=== PATIENT | male | born 1970 | race Caucasian/White ===

== ENCOUNTER 2017-06-24 14:47 | Inpatient (IN) | payer SELFPAY ==
[~2017-06-24] VITALS: Ht 180.3 cm; Wt 93.0 kg
[2017-06-24] MEDS ORDERED: MAGNESIUM HYDROXIDE 30 ML LIQUID UDC PO PRN (15:30)
[2017-06-24] MEDS ORDERED: MIRALAX 17 GM POWD.PACK PO PRN (15:30)
[2017-06-24] MEDS ORDERED: ACETAMINOPHEN 325 MG TABLET PO PRN (15:30)
[2017-06-24] MEDS ORDERED: LOPERAMIDE HCL 2 MG CAPSULE PO PRN ×2 (15:30)
[2017-06-24] MEDS ORDERED: LORAZEPAM 2 MG/1 ML VIAL IM PRN (15:30)
[2017-06-24] MEDS ORDERED: MAG HYDROX/AL HYDROX/SIMETH 30 ML LIQUID UDC PO PRN (15:30)
[2017-06-24] MEDS ORDERED: LORAZEPAM 1 MG TABLET PO PRN (15:30)
[2017-06-24] MEDS ORDERED: IBUPROFEN 400 MG TABLET PO PRN (15:30)
[2017-06-24] MEDS ORDERED: ONDANSETRON ODT 4 MG TAB.RAPDIS SL PRN (15:30)
[2017-06-24] MEDS ORDERED: ONDANSETRON 4 MG/2 ML VIAL IM PRN (15:30)
[2017-06-24] MEDS ORDERED: diphenhydrAMINE 50 MG CAPSULE PO PRN (15:30)
--- NOTE | 2017-06-24 15:40 | NUR ---
PRE-ASSESSMENT: Pre-Assessment done at intake office, client is A/O x4, he presents with flat affect, anxious mood, agitated, restless, flushed face, and moist skin. Client is wearing clean clothes, he appears nourished. Client avoids eye contact, Left eye noted with rylie, he stated, "I think it's a corneal abrasion, it happened when I removed my eye contacts, two days ago." no drainage noted, client denies blurred or double vision, but he reports [id number] and watery eye. Presured speech, he has difficulty staying still, T 98.4 , RR 18, HR 104, spO2 @ 96% on RA, Pain on L eye 04/16. unable to obtain a blood pressure reading, client moves extremity continuously. He is fully ambulatory. He denies any allergies; he denies any withdrawal-induced seizure. PMH: Anxiety. Past Surgical hx: Left ankle. Client denies any suicidal/homicidal ideation at this time and reports no hx of of SI/HI. Medications taken at home Visine eyedrops Gentamycin drops TID OS Substance history First time used at 25 y/o, Alcohol (vodka) PO 750mL, daily for the past 5 days, last used the day before admission before admission around 1400. Protocol regarding vitals Q4H, UDS, blood work, and controlled substances discuss with client, he verbalized understanding. PCP: "I don't have one at the moment."
[2017-06-24] MEDS ORDERED: NAPHAZOLINE/PHENIR OPHT DROP 15 ML BOTTLE LEFTEYE PRN (15:45)
--- NOTE | 2017-06-24 15:50 | NUR ---
Admissions Note 46 year old male admitted to [facility] for withdrawal from alcohol. Client is oriented to unit, educated about protocols and how to work TV and call light in his room. Weight: 205 pounds. Height: 5'11" CIWA: 20 Client appears anxious, clammy skin, dry scattered scabs on bilateral knee, and linear scab on R shoulder. "I felt two days ago." Bilateral lung clear on auscultation, abdomen soft, non-tender, no edema noted. Client presents symptoms of withdrawal, anxiety, irritability, agitation, flushed face, tremors, nausea, restless legs, sense of panic, and difficulty concentrating. Client has steady gait. Client has NKDA, regular diet, full code ordered. Client denies any history of seizures. LBM was 06/24/07, medium/brown/soft. He declines PNA vaccine, stating, "I don't like the side effects of it" He gives verbal consent for HIV. Client states that he lives with his and two young kids. He reports no prior treatment. His longest period of sobriety is for 4 years, from [id number]. Client stated, the reason why he relapse, "I was stressed, I was very streesed and I fall of the wagon, I am so very sorry." Client has not try to stop drinking because he stated, "I feel anxious, restless, irritable, sense of panic." When asked client how this treatment will be different he stated, "I do not know, this is my first ever admission." Client stated, "I am thinking on going into treatment." Dr Palm assessed client. Urine was collected. All safety measures instituted. [place] precaution. Call light within reach. Will continue to monitor.
[2017-06-24 15:59] LABS: BASOPHILS # (AUTO) 0.1 K/uL (0.0-8.0); BASOPHILS % (AUTO) 0.6 % (0.0-2.0); EOSINOPHILS % (AUTO) 0.1 % (0.0-7.0); HEMOGLOBIN 17.3 g/dL (12.5-16.3); LYMPHOCYTES # (AUTO) 1.4 K/uL (20.0-40.0); LYMPHOCYTES % (AUTO) 13.3 % (20.5-51.5); MEAN CORPUSCULAR HGB CONC 35 g/dL (32.5-36.3); MEAN CORPUSCULAR VOLUME 92.6 fL (73.0-96.2); MONOCYTES # (AUTO) 0.6 K/uL (2.0-10.0); MONOCYTES % (AUTO) 5.6 % (0.0-11.0); NEUTROPHILS # (AUTO) 8.7 K/uL (1.8-8.9); NEUTROPHILS % (AUTO) 80.4 % (38.5-71.5); PLATELET COUNT (AUTO) 263 K/uL (152-348); WHITE BLOOD COUNT (AUTO) 10.9 K/uL (3.6-10.2)
[2017-06-24 16:11] LABS: ALANINE AMINOTRANSFERASE 107 U/L (16-63); ALKALINE PHOSPHATASE 90 U/L (50-136); AMYLASE 36 U/L (25-115); ASPARTATE AMINOTRANSFERASE 104 U/L (15-37); BILIRUBIN,TOTAL 1.8 mg/dL (0.2-1.0); CARBON DIOXIDE 30 mmol/L (21-32); CHLORIDE 98 mmol/L (98-107); CREATININE 1.4 mg/dL (0.6-1.3); GLUCOSE 132 mg/dL (74-106); MAGNESIUM 1.3 mg/dL (1.8-2.4); POTASSIUM 3.8 mmol/L (3.5-5.1); TOTAL PROTEIN, SERUM 8.3 g/dL (6.4-8.2); UREA NITROGEN, BLOOD 8 mg/dL (7-18)
[2017-06-24 16:14] LABS: *AMPHETAMINE, URINE NEGATIVE (NEGATIVE); *BARBITURATE, URINE NEGATIVE (NEGATIVE); *CANNABINOID, URINE NEGATIVE (NEGATIVE); *COCCAINE, URINE NEGATIVE (NEGATIVE); *OPIATE, URINE POSITIVE (NEGATIVE); *PHENCYCLIDINE SCREEN,URINE NEGATIVE (NEGATIVE)
[2017-06-24 16:17] LABS: ETHANOL < 3 MG/DL (0-0)
[2017-06-24 16:20] VITALS: BP 172/113
[2017-06-24] MEDS ORDERED: THIAMINE HCL 200 MG/2 ML VIAL IM ONE (16:26)
[2017-06-24] MEDS: CLONIDINE HCL 0.1 MG TABLET PO PRN ×2 (16:42→22:45)
--- NOTE | 2017-06-24 16:42 | NUR ---
PRN Clonidine 0.1mg PO administered for BP 172/113. Call light within reach. Will continue to monitor.
[2017-06-24] MEDS: IV NS 1000 ML 1,000 ML IV PRN (16:55)
--- NOTE | 2017-06-24 16:55 | NUR ---
PRN NACL 0.9% IV administered at prescribed rate.
[2017-06-24] MEDS: LORAZEPAM 1 MG TABLET PO SCH ×2 (17:00→20:13)
[2017-06-24] MEDS: LORAZEPAM 1 MG TABLET PO PRN (17:09)
[2017-06-24] MEDS: CIPROFLOXACIN 0.3% OPHT DROP 2.5 ML BOTTLE LEFTEYE SCH ×2 (17:09→20:14)
--- NOTE | 2017-06-24 17:09 | NUR ---
PRN Ativan 2mg PO for CIWA 20, client presents with anxiety, irritability, agitation, flushed face, tremors, nausea, restless legs, sense of panic, and difficulty concentrating. Will continue to monitor.
[2017-06-24] MEDS ORDERED: [UNRECOGNIZED DRUG - CODE] OP (17:19)
[2017-06-24] MEDS ORDERED: GENT5DRO4 EACHEYE (17:20)
--- NOTE | 2017-06-24 17:42 | NUR ---
Reassess PRN Clonidine 0.1mg PO, BP 143/102. Client denies any GEIGER. Notify MD. Will continue to monitor.
--- NOTE | 2017-06-24 18:09 | NUR ---
Reassess PRN Ativan 2mg, CIWA 13, client continues to present with anxiety, agitation, flushed face, tremors, and difficulty concentrating.
[2017-06-24] MEDS ORDERED: MAGNESIUM OXIDE 400 MG TABLET PO ONE (18:45)
[2017-06-24] MEDS ORDERED: hydrALAZINE HCL 50 MG TABLET PO ONE (18:45)
--- NOTE | 2017-06-24 19:08 | NUR ---
One time Hydralazine 50mg Po for BP 143/102, P 107. Client denies any GEIGER. One time Mag-Ox 800mg PO for Mag 1.3 Endorsed to incoming nurse to reassess.
--- NOTE | 2017-06-24 19:30 | NUR ---
END OF SHIFT Endorse client to incoming nurse, client is in room, he is a/o x 4. client continues to present anxious mood, flat affect, tremors, clammy skin, decreased appetite, restless legs, and fatigue. Peripheral IV on L hand 22G, NaCl 0.9 % running at prescribed rate. PRN medications administered and noted per protocol. Adequate PO fluid intake 385mL, void x 2. Consumes 50% of meals. Last CIWA 13 @ 1800. Call light within reach.
--- NOTE | 2017-06-24 19:30 | NUR ---
Start of Shift Pt is a 46 y/o male admitted today, 06/24/17, for medically managed withdrawal from ETOH, Vodka/750 ml/day x 5 days. Pt on a modified 3 day Ativan taper with last ETOH reported ingested 06/23/17 at 1400. Pt is found laying in bed in darkened room, sunglassess on, c/o conjunctivitis. Pt friendly and cooperative, able to recite history accurately with fair insight. Feelings of regret and shame evident in story. Pt medicated 1907 Hydralazine 50mg PO for HTN, tachycardia, VS's to be retaken 2007. Evening meds reviewed with Benedryl 50mg PO requested by pt for insomnia. Will continue to monitor and promptly attend to all pt needs
[2017-06-24 20:00] VITALS: BP 143/88
--- NOTE | 2017-06-24 20:13 | NUR ---
PRN Med Benedryl 50mg PO given per patient request for insomnia. Will continue to monitor, reassessing in 1 hour, and promptly attend to all patients needs
[2017-06-24] MEDS ORDERED: LORAZEPAM 1 MG TABLET PO SCH (21:00)
--- NOTE | 2017-06-24 21:13 | NUR ---
PRN Med Reassessment Benedryl 50mg PO given 2012 per pt request for insomnia with evening meds. Currently pt sleeping/snoring. Med effective. Will continue to monitor, promptly attending to all pt needs.
--- NOTE | 2017-06-24 22:45 | NUR ---
PRN Med Clonidine 0.1mg PO given for BP 146/100, P 108. Will continue to monitor, reassessing in 1 hour, and promptly attending to all patient needs.
--- NOTE | 2017-06-24 23:45 | NUR ---
PRN Med Reassessment Clonidine 0.1mg PO given one hour prior for BP 146/100, P 108. Currently BP 129/103, P 100. Med effective. Will continue to monitor patient, promptly attending to all needs
[2017-06-25] VITALS (8 sets, daily range): BP systolic 111–163; BP diastolic 81–103
[2017-06-25] MEDS: IV NS 1000 ML 1,000 ML IV PRN ×3 (00:24→20:55)
--- NOTE | 2017-06-25 00:24 | NUR ---
PRN Med 0.9%NS 1L IV hung for dehydration/Na 139. Will continue to monitor, reassess pt in 1 hour, and promptly attend to all pt needs
--- NOTE | 2017-06-25 01:24 | NUR ---
0.9% NS running at 125ml/hr. Pt tolerating it well, PIV in left hand, 22g, dry and intact. Will continue to monitor and promptly attend to all pt needs
--- NOTE | 2017-06-25 04:20 | NUR ---
PRN Meds Naphcon-A opth eye drops and Ativan 2mg PO for CIWA 13 administered to pt. VS's taken. Will continue to monitor pt, reassessing in 1 hour, promptly attending to all pt needs
[2017-06-25] MEDS: LORAZEPAM 1 MG TABLET PO PRN (04:21)
--- NOTE | 2017-06-25 05:20 | NUR ---
PRN Med Reassessment Ativan 2mg PO for CIWA 13 and Naphcon-A eye drops given 1 hour prior. Pt found sleeping, RR 14 even and nonlabored. Meds effective. Will continue to monitor and promptly attend to all pt needs
--- NOTE | 2017-06-25 06:45 | NUR ---
End of Shift Pt is a 46 y/o male admitted today, 06/24/17, for medically managed withdrawal from ETOH, Vodka/750 ml/day x 5 days. Pt on a modified 3 day Ativan taper with last ETOH reported ingested 06/23/17 at 1400. PRN meds for shift included Benedryl 50mg PO for insomnia and Clonidine 0.1mg PO for HTN/tachycardia, and 1L 0.9% NS IV for dehydration/Na 139. LH 22g PIV pulled out (d/c'd) and new 22g PIV started L forearm at 0345. Ativan 2mg PO for CIWA 13 and Naphcon-A eye drops given 0420. Pt slept for 10 hours, with 855 mls intake, 1 voids, and 0 BM's. Will continue to monitor, giving patient endorsement to day nurse and promptly attend to all pt needs
--- NOTE | 2017-06-25 07:42 | NUR ---
Start of Shift- Pt is a 46 y/o male admitted for medically managed withdrawal from ETOH, Vodka/750 ml/day x 5 days. Pt on a modified 3 day Ativan taper with last ETOH reported ingested 06/23/17 at 1400. Pt appears to be asleep, resp even and unlabored. Pt arousable to voice and light touch. Pt has 1L 0.9% NS IV for dehydration/Na 139. 22g. PIV on Left forearm. Last CIWA at 0400 was 13. Pt slept for 10 hours. NKA, FULL CODE. Will provide education, reassurance and teachings on medications and plan of care. Fall, universal, seizure and safety precautions in place. Call light within reach.
[2017-06-25] MEDS: hydrALAZINE HCL 50 MG TABLET PO PRN ×2 (08:03→16:38)
[2017-06-25] MEDS: MULTIVITAMINS,THERAPEUTIC TABLET PO SCH (08:03)
[2017-06-25] MEDS: FOLIC ACID 1 MG TABLET PO SCH (08:03)
[2017-06-25] MEDS: THIAMINE HCL 100 MG TABLET PO SCH (08:04)
[2017-06-25] MEDS: CIPROFLOXACIN 0.3% OPHT DROP 2.5 ML BOTTLE LEFTEYE SCH ×4 (08:04→20:12)
[2017-06-25] MEDS: LORAZEPAM 1 MG TABLET PO SCH ×3 (08:04→20:14)
--- NOTE | 2017-06-25 08:10 | NUR ---
PRN HYDRALAZINE 50 MG PO FOR LUCILLE 163/102, HR 94
[2017-06-25] MEDS ORDERED: TUBERCULIN,PURIF.PROT.DERIV. 5 TU/0.1 ML TEST ID ONE (09:00)
--- NOTE | 2017-06-25 09:15 | NUR ---
REASSESS HYDRALAZINE PT BP IMPROVED 111/81, HR REMAINS ELEVATED AT 104.
[2017-06-25] MEDS ORDERED: IBUP-1953 PO (13:13)
[2017-06-25] MEDS ORDERED: CLON0.1T14 PO (13:13)
[2017-06-25] MEDS ORDERED: TRAZ-144 PO (13:13)
[2017-06-25 14:06] LABS: HEPATITIS B SURFACE AG Negative (Negative)
--- NOTE | 2017-06-25 15:25 | NUR ---
PRN IMODIUM PO GIVEN FOR DIARRHEA.
--- NOTE | 2017-06-25 16:25 | NUR ---
REASSESS IMODIUM, PT REPORTS NO MORE DIARRHEA
--- NOTE | 2017-06-25 16:40 | NUR ---
PRN HYDRALAZINE 50 MG PO FOR BP 154/99
--- NOTE | 2017-06-25 17:51 | NUR ---
BLOOD PRESSURE: REASSESS HYDRALAZINE, BP STILL ELEVATED 140/96. WILL ADMINISTER PRN CATAPRES 0.1 MG PO
[2017-06-25] MEDS: CLONIDINE HCL 0.1 MG TABLET PO PRN (17:58)
--- NOTE | 2017-06-25 18:45 | NUR ---
BLOOD PRESSURE REMAINS ELEVATED AFTER CATAPRES 138/95, HR 120
--- NOTE | 2017-06-25 18:56 | NUR ---
End of Shift- Pt is a 46 y/o male admitted for medically managed withdrawal from ETOH. Pt on a modified 3 day Ativan taper tolerating well. Pt reports feeling well. Pt has 1L 0.9% NS IV for dehydration/Na 139. 22g. PIV on Left forearm. Last CIWA 10. PRN medications administered hydralazine, catapres and Imodium. Blood pressure remains slightly elevated after PRN medications. Provided education, reassurance and teachings on medications and plan of care. Pt did not participate in group therapy session today. Adequate IV fluids 1125 ml, PO fluids 1500 ml, voids X 3. BM x 2. NKA, FULL CODE. Safety measures in place. Bed lowest/locked position, side rails up X2, call light within reach. Will continue to monitor withdrawal symptoms. Will endorse to PM shift.
--- NOTE | 2017-06-25 19:20 | NUR ---
Start of Shift Patient Received. Patient is in his room, awake, alert and verbally responsive. Breathing even and non labored. IV site to left forearm, 22 gauge noted to be dry, intact, with no signs of infiltration noted. Patient is tolerating fluids well. Per endorsement, patient continues on a modified 3 day Ativan taper. He was started on IV therapy of NaCl 125ml/hr. He was medicated for elevated blood pressure with PRN Hydralazine x2 and PRN Clonidine x1 with mediation noted to be effective. Last noted CIWA 10. All needs attended to promptly. Will continue plan of care as ordered.
[2017-06-25] MEDS: TRAZODONE 50 MG TABLET PO PRN (20:14)
--- NOTE | 2017-06-25 20:24 | NUR ---
PRN Medication Administration Patient is noted verbalizing inability of falling asleep. Patient states "I just feel like I can go to the gym now. I've just have so much on my mind." PRN Trazodone administered with routine medication. Will continue to monitor.
--- NOTE | 2017-06-25 21:20 | NUR ---
PRN Medication Reassessment Patient is in bed sleeping. Breathing even and non labored. No signs of restlessness or discomfort noted. PRN Trazodone noted to be effective. Will continue to monitor.
[2017-06-26] VITALS (10 sets, daily range): BP systolic 133–167; BP diastolic 89–113
[2017-06-26] MEDS: IV NS 1000 ML 1,000 ML IV PRN (04:55)
--- NOTE | 2017-06-26 07:13 | NUR ---
End of Shift Patient is in bed sleeping but easily aroused to verbal stimuli. Breathing even and non labored. IV Fluids continue as ordered with IV site noted to left forearm, 22 gauge noted to be dry, intact, with no signs of infiltration noted. Patient is tolerating fluids well. He continues on a modified 3 day Ativan taper. No episodes of hypertension noted. PRN Trazodone administered for inability of falling asleep with medication noted to be effective. Patient noted to sleep a total of 9 hours. Last noted CIWA 5 at 0455. All needs attended to promptly. Will endorse to continue plan of care as ordered.
--- NOTE | 2017-06-26 07:25 | NUR ---
Start of Shift- Pt is a 46 y/o male admitted for medically managed withdrawal from ETOH, Vodka/750 ml/day x 5 days. Pt on a modified 3 day Ativan taper with last ETOH reported ingested 06/23/17 at 1400. PT A&O X4. Denies c/o N/V/D, resp even and unlabored. Pt has 1L 0.9% NS IV for dehydration/Na 139. 22g. PIV on Left forearm. Last CIWA at 0400 was 5. Pt slept for hours. NKA, FULL CODE. Will provide education, reassurance and teachings on medications and plan of care. Fall, universal, seizure and safety precautions in place. Call light within reach.
[2017-06-26] MEDS: hydrALAZINE HCL 50 MG TABLET PO PRN ×2 (07:51→13:45)
[2017-06-26 07:53] LABS: BILIRUBIN,DIRECT 0.2 mg/dL (0.0-0.2); BILIRUBIN,TOTAL 1.1 mg/dL (0.2-1.0); CREATININE 1.3 mg/dL (0.6-1.3); POTASSIUM 4.6 mmol/L (3.5-5.1); TOTAL PROTEIN, SERUM 6.6 g/dL (6.4-8.2)
--- NOTE | 2017-06-26 07:55 | NUR ---
PRN HYDRALAZINE 50 MG PO FOR BP 153/105, HR-76.
[2017-06-26 08:11] LABS: BASOPHILS % (AUTO) 0.8 % (0.0-2.0); EOSINOPHILS # (AUTO) 0.1 K/uL (0.0-0.7); EOSINOPHILS % (AUTO) 2.8 % (0.0-7.0); LYMPHOCYTES # (AUTO) 1.8 K/uL (20.0-40.0); LYMPHOCYTES % (AUTO) 33.7 % (20.5-51.5); MEAN CORPUSCULAR HEMOGLOBIN 31.8 uug (23.8-33.4); MEAN CORPUSCULAR HGB CONC 34 g/dL (32.5-36.3); MEAN CORPUSCULAR VOLUME 93.3 fL (73.0-96.2); MONOCYTES # (AUTO) 0.4 K/uL (2.0-10.0); MONOCYTES % (AUTO) 7.1 % (0.0-11.0); NEUTROPHILS # (AUTO) 2.9 K/uL (1.8-8.9); NEUTROPHILS % (AUTO) 55.6 % (38.5-71.5); RED BLOOD CELL COUNT(AUTO) 4.62 MIL/uL (4.06-5.63)
[2017-06-26 08:30] LABS: HEMOGLOBIN 14.7 g/dL (12.5-16.3); WHITE BLOOD COUNT (AUTO) 5.3 K/uL (3.6-10.2)
[2017-06-26 08:31] LABS: HEMATOCRIT 43.1 % (36.7-47.1); PLATELET COUNT (AUTO) 177 K/uL (152-348)
[2017-06-26] MEDS: CLONIDINE HCL 0.1 MG TABLET PO PRN ×2 (08:57→15:26)
[2017-06-26] MEDS: FOLIC ACID 1 MG TABLET PO SCH (08:57)
[2017-06-26] MEDS: CIPROFLOXACIN 0.3% OPHT DROP 2.5 ML BOTTLE LEFTEYE SCH ×4 (08:57→20:37)
[2017-06-26] MEDS: THIAMINE HCL 100 MG TABLET PO SCH (08:58)
[2017-06-26] MEDS: MULTIVITAMINS,THERAPEUTIC TABLET PO SCH (08:58)
[2017-06-26] MEDS ORDERED: LORAZEPAM 1 MG TABLET PO SCH (09:00)
--- NOTE | 2017-06-26 09:03 | NUR ---
BLOOD PRESSURE- REASSESS HYDRALAZINE, PT bp REMAINS ELEVATED 151/105, HR 115. ADMINISTER CATAPRES 0.[address] AHUMADA
--- NOTE | 2017-06-26 09:52 | NUR ---
BLOOD PRESSURE- REASSESS CATAPRES, BP IMPROVED 136/96, HR 93. DIASTOLIC REMAINS SLIGHTLY ELEVATED.
[2017-06-26] MEDS ORDERED: CARVEDILOL 3.125 MG TABLET PO ONE (11:15)
--- NOTE | 2017-06-26 11:31 | NUR ---
DC IV PER MD ORDER. APPLIED PRESSURE WITH 4X4 GAUZE AND TAPE. HEMOSTASIS OBTAINED.
--- NOTE | 2017-06-26 13:47 | NUR ---
BLOOD PRESSURE 154/105, HR 98- ADMINISTER HYDRALAZINE 50 MG PO PRN
--- NOTE | 2017-06-26 15:20 | NUR ---
BLOOD PRESSURE AT 1500 BP 167/113, RECHECKED BP WITH LARGER CUFF, BP REMAINED ELEVATED. ADMINISTER CATAPRES 0.1 MG PO WILL RECHECK BP IN 30 MINUTES
--- NOTE | 2017-06-26 16:00 | NUR ---
BLOOD PRESSURE 148/108. PT DENIES C/O ANXIETY. C/O HEADACHE #09/13. CALLED AND NOTIFIED DR. AHUMADA OF BLOOD PRESSURE TRENDS THIS AFTERNOON.
--- NOTE | 2017-06-26 16:08 | NUR ---
PRN MOTRIN 400 MG PO FOR HEADACHE #7/10.
[2017-06-26] MEDS ORDERED: hydrALAZINE HCL 50 MG TABLET PO PRN (16:30)
--- NOTE | 2017-06-26 17:09 | NUR ---
REASSESS CODY, PT STATES HEADACHE NOW #4/10, MEDICATION EFFECTIVE.
[2017-06-26] MEDS: CARVEDILOL 6.25 MG TABLET PO SCH (17:14)
--- NOTE | 2017-06-26 18:24 | NUR ---
End of Shift- Pt is a 46 y/o male admitted for medically managed withdrawal from ETOH, Vodka/750 ml/day x 5 days. Pt completed 3 day Ativan taper today and tolerated well. He is scheduled for discharge tomorrow. PT A&O X4. Denies c/o N/V/D, resp even and unlabored. Pt has had elevated blood pressure throughout the day. PRN hydralazine, catapres given with new order Coreg; Dr. Palm aware of afternoon trends. Last CIWA 6. NKA, FULL CODE. Adequate PO fluids 1651 ml, IV fluids 625 ML, voids 4, and BM X1. Educated regarding plan of care for the day, and medication regimen. Pt has not participated in group therapy today. All safety measures in place. fall and seizure precautions observed and in place. will continue to monitor closely. Endorsed to PM shift.
--- NOTE | 2017-06-26 19:30 | NUR ---
START OF SHIFT Pt is a 46 y/o male admitted on 06/24/17 for ETOH withdrawal. Pt finished a 3 day Ativan taper, tolerated well and is scheduled to be d/c tomorrow. Pt had persistent increased BP throughout day shift, administered hydralazine x 2 and clonidine x 2 during day shift. Last CIWA 6. Upon assessment pt presents with anxiety, restlessness, flat affect, difficulty falling and staying asleep, agitation, increased BP, dysphoria and anhedonia. Medications due. Safety measures in place. Call light within reach. Will continue to monitor.
[2017-06-26] MEDS: TRAZODONE 50 MG TABLET PO PRN (20:37)
--- NOTE | 2017-06-26 20:37 | NUR ---
PRN HYDRALAZINE AND TRAZODONE ADMINISTRATION BP 140/101 HR 77, orders to give Hydralazine. Pt requests Trazodone for sleep. Safety measures in place. Call light within reach. Will continue to monitor.
--- NOTE | 2017-06-26 21:37 | NUR ---
PRN HYDRALAZINE AND TRAZODONE REASSESSMENT BP 139/96 HR 75. Pt laying in bed with eyes closed, Trazodone effective. Safety measures in place. Call light within reach. Will continue to monitor.
--- NOTE | 2017-06-27 | NUR ---
CIWA DEFERRED AND VITALS REFUSED Pt laying in bed with eyes closed, CIWA deferred, to be assessed when pt is awake per orders. Vitals refused. Respirations even and unlabored. Safety measures in place. Call light within reach. Will continue to monitor.
--- NOTE | 2017-06-27 07:27 | NUR ---
END OF SHIFT Pt is a 46 y/o male admitted on 06/24/17 for ETOH withdrawal. Pt finished a 3 day Ativan taper, tolerated well and is scheduled to be d/c [id number]. Pt presented with anxiety, restlessness, flat affect, difficulty falling and staying asleep, agitation, increased BP, dysphoria and anhedonia. Scheduled medications and PRN Hydralazine and Trazodone administered, effective in S/S of withdrawal as verbalized by pt. Last CIWA 5. Pt slept 8 hours. Intake 1500 ml, void x 4, stool x 0. Safety measures in place. Call light within reach. Pts needs have been met. Endorsed to day shift nurse.
--- NOTE | 2017-06-27 07:30 | NUR ---
START OF SHIFT : PATIENT IS A 46 YR OLD MALE ADMITTED TO [facility] ON 06/24/17 FOR A MEDICALLY SUPERVISED WITHDRAWAL FROM ALCOHOL. PATIENT HAS COMPLETED AN ATIVAN TAPER AND IS TO BE DISCHARGED TODAY TO FURTHER TREATMENT. PATIENT IS AWAKE AT THIS TIME AND VOICES NO CONCERNS. PRN MEDS GIVEN ON PM SHIFT : HYDRALAZINE AND TRAZODONE. PATIENT SLEPT FOR 8 HOURS AND LAST CIWA WAS 5. CONTINUE TO FOLLOW MD DISCHARGE ORDERS.
[2017-06-27 08:00] VITALS: BP 167/103
[2017-06-27 08:25] VITALS: BP 167/103
[2017-06-27] MEDS: CIPROFLOXACIN 0.3% OPHT DROP 2.5 ML BOTTLE LEFTEYE SCH (08:25)
[2017-06-27] MEDS: FOLIC ACID 1 MG TABLET PO SCH (08:25)
[2017-06-27] MEDS: CARVEDILOL 6.25 MG TABLET PO SCH (08:25)
[2017-06-27] MEDS: THIAMINE HCL 100 MG TABLET PO SCH (08:25)
[2017-06-27] MEDS: MULTIVITAMINS,THERAPEUTIC TABLET PO SCH (08:25)
--- NOTE | 2017-06-27 09:25 | NUR ---
DISCHARGE NOTE : PATIENT IS A 46 YR OLD MALE WHO WAS ADMITTED TO [facility] ON 06/24/17 FOR A MEDICALLY SUPERVISED DETOX FROM ALCOHOL. PATIENT HAS COMPLETED A 3 DAY ATIVAN TAPER WITH NO COMPLICATIONS. VS STABLE BP 150/90, HR 84, RR 16 T 98.5,CIWA 5. PATIENT STATES NO SI/HI , ALL DC PAPERWORK HAS BEEN SIGNED AND DATED, ALL PERSONAL BELONGINGS, MEDS AND PRESCRIPTIONS PLACED IN ZIP TIED BELONGINGS BAG. PATIENT AMBULATED OFF THE UNIT AND WAS PICKED UP AT HOSPITAL ENTRANCE BY PRIVATE CAR " [employer] ' FOR TRANSPORT TO " [facility] ".
== END 2017-06-27 09:25 | DRG 895 ==
LOC: SRC 14:47
PROVIDERS: ADMIT Internal Medicine; ATTEND Internal Medicine
PROC: HZ2ZZZZ Detoxification Services for Substance Abuse Treatment (ICD-10-PCS; principal; 2017-06-24)
PROC: HZ59ZZZ Individual Psychotherapy for Substance Abuse Treatment, Supportive (ICD-10-PCS; 2017-06-26)
DX: F10.230 Alcohol dependence with withdrawal, uncomplicated (principal); N17.9 Acute kidney failure, unspecified; I15.9 Secondary hypertension, unspecified; K70.10 Alcoholic hepatitis without ascites; Y90.9 Presence of alcohol in blood, level not specified; Z72.0 Tobacco use; H10.32 Unspecified acute conjunctivitis, left eye; G47.00 Insomnia, unspecified; E86.0 Dehydration; E83.42 Hypomagnesemia; F41.9 Anxiety disorder, unspecified; D72.829 Elevated white blood cell count, unspecified
CPT/HCPCS: 36415; 80307; 80361; 83735; 85025; 86592; 86705; 86803; 87340; 87806; A4663; G0480; J3411; J7030; Q0163